=== PATIENT | female | born 1955 | race Caucasian/White ===

== ENCOUNTER 2020-08-12 13:42 | Emergency (ER) | payer OTHER ==
[~2020-08-12] VITALS: Ht 165.1 cm; Wt 90.9 kg
[~2020-08-12 13:42] MED LIST: ACID1TAB15 PO; AMLO2.5T96 PO; CARB15OT AD; LEVO50TA4 PO; LITH300C3 PO; LORA-1000 PO; MIRT30 PO; PARO-38 PO; RISP0.252 PO; THERAGRAN M1 TA1 PO
[2020-08-12] MEDS ORDERED: DiphenhydrAMINE HCL 50 MG/ML VIAL IVP STA (15:39)
[2020-08-12] MEDS ORDERED: AMLO-258 PO (15:44)
[2020-08-12] MEDS ORDERED: MULT-29 PO (15:44)
[2020-08-12] MEDS ORDERED: LEVO100 PO (15:44)
[2020-08-12] MEDS ORDERED: ACID1TAB8 PO (15:44)
[2020-08-12] MEDS ORDERED: RISP0.5T39 PO (15:44)
[2020-08-12] MEDS ORDERED: METOCLOPRAMIDE HCL 5 MG/ML 2 ML VIAL IVP ONE (15:45)
[2020-08-12] MEDS ORDERED: ACETAMINOPHEN 500 MG TABLET PO ONE (15:45)
[2020-08-12] MEDS ORDERED: LORazepam 2 MG/ML VIAL IVP ONE (15:45)
[2020-08-12] MEDS ORDERED: SODIUM CHLORIDE 0.9% 1,000 ML IV ONE (15:45)
[2020-08-12 15:57] LABS: BASOPHILS % (AUTO) 0.8 % (0.0-2.0); EOSINOPHILS % (AUTO) 3.2 % (1.0-6.0); HEMATOCRIT 45.7 % (36-46); HEMOGLOBIN 15.3 g/dL (12.0-16.0); LYMPHOCYTES % (AUTO) 27.6 % (22.0-44.0); MEAN CORPUSCULAR HEMOGLOBIN 31.8 pg (26.0-34.0); MEAN CORPUSCULAR HGB CONC 33.6 G/dL (31.0-37.0); MEAN CORPUSCULAR VOLUME 95 fL (80-100); MONOCYTES # (AUTO) 1.5 K/uL (0.1-1.0); MONOCYTES % (AUTO) 10.4 % (2.0-9.0); NEUTROPHILS # (AUTO) 8.3 K/uL (1.8-7.7); PLATELET COUNT (AUTO) 326 K/uL (150-450); RED BLOOD CELL COUNT(AUTO) 4.83 MIL/uL (4.00-5.20); RED CELL DISTRIBUTION WIDTH 13.4 % (11.5-14.5)
[2020-08-12 16:05] LABS: LITHIUM 0.51 mmol/L (0.60-1.20)
[2020-08-12 16:06] LABS: ANION GAP 8 mmol/L (8-16); CALCIUM, TOTAL 8.8 mg/dL (8.8-10.5); CARBON DIOXIDE 27 mmol/L (22-29); CHLORIDE 106 mmol/L (98-107); CREATININE 0.79 mg/dL (0.60-1.30); GLOMERULAR FILTR. RATE CALC > 60 mL/min (>60); GLUCOSE,RANDOM 146 mg/dL (70-110); POTASSIUM 3.7 mmol/L (3.5-5.1); SODIUM SERUM 141 mmol/L (136-145); UREA NITROGEN, BLOOD 24 mg/dL (7-18)
[2020-08-12 16:12] LABS: ALANINE AMINOTRANSFERASE 143 U/L (12-78); ALBUMIN 3.3 g/dL (3.4-5.0); ALKALINE PHOSPHATASE 129 U/L (46-116); ASPARTATE AMINOTRANSFERASE 65 U/L (15-37); BILIRUBIN,TOTAL 0.5 mg/dL (0.1-1.0); TOTAL PROTEIN, SERUM 7.2 g/dL (6.4-8.2)
[2020-08-12] MEDS ORDERED: KETOROLAC TROMETHAMINE 30 MG/ML VIAL IVP ONE (17:45)
[2020-08-12 18:56] LABS: APPEARANCE,URINE CLEAR (CLEAR); BILIRUBIN,URINE NEGATIVE (NEGATIVE); GLUCOSE, URINE (UA) NEGATIVE (NEGATIVE); KETONES,URINE NEGATIVE (NEGATIVE); LEUKOCYTE ESTERASE ,URINE NEGATIVE (NEGATIVE); NITRATE,URINE NEGATIVE (NEGATIVE); OCCULT BLOOD,URINE NEGATIVE (NEGATIVE); PROTEIN,URINE NEGATIVE (NEGATIVE); UROBILINOGEN,URINE 0.2 mg/dL (<=1.0)
[2020-08-12 19:12] LABS: BACTERIA,URINE None Seen /HPF (None Seen); RBC,URINE None Seen /HPF (0-2); SQUAMOUS EPITHELIAL CELL,UR None Seen /LPF (None Seen); WBC,URINE 0-2 /HPF (0-5)
[2020-08-12 21:03] VITALS: BP 132/68
== END 2020-08-12 21:42 | disposition home or self-care (01) ==
LOC: EMS 13:42
DX: F41.9 Anxiety disorder, unspecified (principal); J84.10 Pulmonary fibrosis, unspecified; K76.0 Fatty (change of) liver, not elsewhere classified; R51.9 Headache, unspecified; I10 Essential (primary) hypertension; Z79.899 Other long term (current) drug therapy
CPT/HCPCS: 36415; 70450; 71045; 71250; 80053; 80178; 81001; 85025; 96361; 96374; 96375; 99285; J1200; J1885; J2060; J2765; J7030

== ENCOUNTER 2021-07-27 18:47 | Inpatient (IN) | payer OTHER, MEDICAID ==
[~2021-07-27] VITALS: Ht 162.6 cm; Wt 88.0 kg
[~2021-07-27 18:47] MED LIST changes: -ACID1TAB15 PO; +ACID1TAB8 PO; +AMLO-258 PO; -AMLO2.5T96 PO; -CARB15OT AD; +LEVO100 PO; -LEVO50TA4 PO; +MULT-29 PO; -RISP0.252 PO; +RISP0.5T39 PO; -THERAGRAN M1 TA1 PO
[2021-07-27 19:47] LABS: GLUCOSE,POINT OF CARE 100 MG/DL (70-110)
[2021-07-27 21:35] LABS: BASOPHILS % (AUTO) 0.7 % (0.0-2.0); EOSINOPHILS % (AUTO) 4.4 % (1.0-6.0); HEMATOCRIT 44.3 % (36-46); HEMOGLOBIN 14.6 g/dL (12.0-16.0); LYMPHOCYTES # (AUTO) 3.4 K/uL (1.0-4.8); LYMPHOCYTES % (AUTO) 25.4 % (22.0-44.0); MEAN CORPUSCULAR HGB CONC 32.9 G/dL (31.0-37.0); MEAN CORPUSCULAR VOLUME 94 fL (80-100); MONOCYTES # (AUTO) 1.2 K/uL (0.1-1.0); MONOCYTES % (AUTO) 8.8 % (2.0-9.0); NEUTROPHILS # (AUTO) 8.2 K/uL (1.8-7.7); NEUTROPHILS % (AUTO) 60.7 % (40.0-70.0); PLATELET COUNT (AUTO) 259 K/uL (150-450); RED BLOOD CELL COUNT(AUTO) 4.71 MIL/uL (4.00-5.20); RED CELL DISTRIBUTION WIDTH 13.4 % (11.5-14.5)
[2021-07-27 21:45] LABS: ANION GAP 12 mmol/L (8-16); CALCIUM, TOTAL 9.9 mg/dL (8.8-10.5); CARBON DIOXIDE 22 mmol/L (22-29); CHLORIDE 108 mmol/L (98-107); CREATININE 1.11 mg/dL (0.60-1.30); GLOMERULAR FILTR. RATE CALC 49 mL/min (>60); GLUCOSE,RANDOM 122 mg/dL (70-110); POTASSIUM 3.8 mmol/L (3.5-5.1); SODIUM SERUM 142 mmol/L (136-145); UREA NITROGEN, BLOOD 18 mg/dL (7-18)
[2021-07-27 21:53] LABS: ALANINE AMINOTRANSFERASE 45 U/L (12-78); ALBUMIN 4.1 g/dL (3.4-5.0); ALKALINE PHOSPHATASE 91 U/L (46-116); ASPARTATE AMINOTRANSFERASE 26 U/L (15-37); BILIRUBIN,TOTAL 0.5 mg/dL (0.1-1.0)
[2021-07-27 22:15] LABS: LITHIUM 0.54 mmol/L (0.60-1.20)
[2021-07-27 22:16] LABS: AMPHET/METH SCREEN,URINE NEGATIVE (NEGATIVE); BARBITURATE SCREEN, URINE NEGATIVE (NEGATIVE); BENZODIAZEPINES SCREEN,URINE NEGATIVE (NEGATIVE); CANNABINOID SCREEN,URINE POSITIVE (NEGATIVE); COCAINE SCREEN,URINE NEGATIVE (NEGATIVE); METHADONE SCREEN, URINE NEGATIVE (NEGATIVE); OPIATE SCREEN,URINE NEGATIVE (NEGATIVE)
[2021-07-27 22:19] LABS: PHENCYCLIDINE SCREEN,URINE NEGATIVE (NEGATIVE)
[2021-07-27 23:34] LABS: COVID AG,FIA SOURCE NASOPHARYNGEAL
[2021-07-28 03:24] VITALS: BP 146/83
[2021-07-28] MEDS: LORazepam 2 MG TABLET PO PRN ×2 (03:26→09:21)
[2021-07-28 06:18] LABS: GLUCOMETER DEV NAME(LOC) BV2S.; GLUCOSE,POINT OF CARE 126 MG/DL (70-110)
[2021-07-28 08:08] VITALS: BP 151/63
[2021-07-28] MEDS ORDERED: CloNIDine HCL 0.1 MG TABLET PO PRN (11:00)
[2021-07-28] MEDS ORDERED: MAGNESIUM HYDROXIDE SUSPENSION 30 ML UDCUP PO PRN (11:00)
[2021-07-28] MEDS ORDERED: ALBUTEROL SULFATE HFA 90 MCG/PUFF 8 GM INHALER IH PRN (11:00)
[2021-07-28] MEDS ORDERED: GLUCAGON,HUMAN RECOMBINANT 1 MG VIAL IM PRN (11:00)
[2021-07-28] MEDS ORDERED: IBUPROFEN 600 MG TABLET PO PRN (11:00)
[2021-07-28] MEDS ORDERED: MAG HYDROX/AL HYDROX/SIMETH ES 30 ML SUSPENSION UDCUP PO PRN (11:00)
[2021-07-28] MEDS ORDERED: PETROLATUM,WHITE 28 GM JELLY TP PRN (11:00)
[2021-07-28] MEDS ORDERED: BACITRACIN 28 GM OINTMENT TP PRN (11:00)
[2021-07-28] MEDS ORDERED: ONDANSETRON HCL 4 MG TABLET PO PRN (11:00)
[2021-07-28] MEDS ORDERED: OMEPRAZOLE 20 MG CAPSULE PO PRN (11:00)
[2021-07-28] MEDS ORDERED: BENZOCAINE/MENTHOL LOZENGE PO PRN (11:00)
[2021-07-28] MEDS ORDERED: DOCUSATE SODIUM 100 MG CAPSULE PO PRN (11:00)
[2021-07-28] MEDS ORDERED: LOPERAMIDE HCL 2 MG CAPSULE PO PRN (11:00)
[2021-07-28] MEDS: HALOPERIDOL 5 MG TABLET PO PRN (13:20)
[2021-07-28] MEDS ORDERED: PNEUMOCOCCAL VACCINE POLYVALENT 0.5 ML VIAL [PPSV23] IM. ONE (15:00)
[2021-07-28 16:33] VITALS: BP 141/61
[2021-07-28] MEDS: LITHIUM CARBONATE 300 MG CAPSULE PO SCH (16:51)
[2021-07-28] MEDS: LORazepam 0.5 MG TABLET PO SCH (16:51)
[2021-07-28 17:20] LABS: GLUCOMETER DEV NAME(LOC) BV2S.; GLUCOSE,POINT OF CARE 101 MG/DL (70-110)
[2021-07-28] MEDS: MIRTAZAPINE 15 MG TABLET PO SCH (20:01)
[2021-07-28 21:20] LABS: GLUCOMETER DEV NAME(LOC) BV2X.2; GLUCOSE,POINT OF CARE 106 MG/DL (70-110)
[2021-07-29 00:42] VITALS: BP 134/69
[2021-07-29 04:08] VITALS: BP 122/70
[2021-07-29] MEDS: HALOPERIDOL 5 MG TABLET PO PRN ×2 (04:19→12:04)
[2021-07-29 06:45] LABS: GLUCOMETER DEV NAME(LOC) BV2X.2; GLUCOSE,POINT OF CARE 101 MG/DL (70-110)
[2021-07-29] MEDS: LEVOTHYROXINE SODIUM 100 MCG TABLET PO SCH (06:56)
[2021-07-29] MEDS: LORazepam 0.5 MG TABLET PO SCH ×2 (07:55→16:20)
[2021-07-29] MEDS: LITHIUM CARBONATE 300 MG CAPSULE PO SCH ×2 (07:55→16:20)
[2021-07-29] MEDS: MIRTAZAPINE 15 MG TABLET PO SCH ×2 (07:57→20:34)
[2021-07-29] MEDS: AmLODIPine BESYLATE 10 MG TABLET PO SCH (07:58)
[2021-07-29 08:14] VITALS: BP 134/73
[2021-07-29 08:34] LABS: HEMOGLOBIN A1C 5.4 % (3.8-5.6)
[2021-07-29 08:53] LABS: FREE T4 (FREE THYROXINE) 0.98 ng/dL (0.76-1.46); THYROID STIMULATING HORMONE 16.25 uIU/mL (0.36-3.74)
[2021-07-29 11:16] LABS: GLUCOMETER DEV NAME(LOC) BV2X.2; GLUCOSE,POINT OF CARE 89 MG/DL (70-110)
[2021-07-29] MEDS ORDERED: MULT-248 PO (14:44)
[2021-07-29 16:09] VITALS: BP 126/73
[2021-07-29] MEDS: BRIMONIDINE/TIMOLOL 0.2-0.5% 5 ML OPHTHALMIC SOLUTION OU SCH (16:21)
[2021-07-29 16:40] LABS: GLUCOMETER DEV NAME(LOC) BV2X.2; GLUCOSE,POINT OF CARE 111 MG/DL (70-110)
[2021-07-29] MEDS: LATANOPROST 0.005% 2.5 ML OPHTHALMIC SOLUTION OU SCH (20:50)
[2021-07-29 21:06] LABS: GLUCOMETER DEV NAME(LOC) BV2X.2; GLUCOSE,POINT OF CARE 121 MG/DL (70-110)
[2021-07-30 00:58] VITALS: BP 124/75
[2021-07-30] MEDS: LEVOTHYROXINE SODIUM 100 MCG TABLET PO SCH (06:42)
[2021-07-30 06:49] LABS: GLUCOMETER DEV NAME(LOC) BV2X.2; GLUCOSE,POINT OF CARE 150 MG/DL (70-110)
[2021-07-30] MEDS: INSULIN LISPRO 100 UNITS/ML SQ PRN (06:51)
[2021-07-30] MEDS: AmLODIPine BESYLATE 10 MG TABLET PO SCH (08:12)
[2021-07-30] MEDS: LORazepam 0.5 MG TABLET PO SCH ×2 (08:12→16:37)
[2021-07-30] MEDS: LITHIUM CARBONATE 300 MG CAPSULE PO SCH ×2 (08:12→16:37)
[2021-07-30] MEDS: MIRTAZAPINE 15 MG TABLET PO SCH ×2 (08:13→20:02)
[2021-07-30] MEDS: BRIMONIDINE/TIMOLOL 0.2-0.5% 5 ML OPHTHALMIC SOLUTION OU SCH ×2 (08:14→16:38)
[2021-07-30 08:47] VITALS: BP 140/76
[2021-07-30] MEDS: HALOPERIDOL 5 MG TABLET PO PRN ×2 (09:02→12:53)
[2021-07-30 11:11] LABS: GLUCOMETER DEV NAME(LOC) BV2X.2; GLUCOSE,POINT OF CARE 122 MG/DL (70-110)
[2021-07-30 16:19] VITALS: BP 138/79
[2021-07-30 17:17] LABS: GLUCOMETER DEV NAME(LOC) BV2X.2; GLUCOSE,POINT OF CARE 112 MG/DL (70-110)
[2021-07-30] MEDS: ZOLPIDEM TARTRATE 10 MG TABLET PO PRN (20:01)
[2021-07-30] MEDS: LATANOPROST 0.005% 2.5 ML OPHTHALMIC SOLUTION OU SCH (20:02)
[2021-07-30 20:23] LABS: GLUCOMETER DEV NAME(LOC) BV2X.2; GLUCOSE,POINT OF CARE 104 MG/DL (70-110)
[2021-07-31 05:23] VITALS: BP 135/83
[2021-07-31 06:23] LABS: GLUCOMETER DEV NAME(LOC) BV2X.2; GLUCOSE,POINT OF CARE 135 MG/DL (70-110)
[2021-07-31] MEDS: LEVOTHYROXINE SODIUM 100 MCG TABLET PO SCH (06:51)
[2021-07-31] MEDS: AmLODIPine BESYLATE 10 MG TABLET PO SCH (08:14)
[2021-07-31] MEDS: LORazepam 0.5 MG TABLET PO SCH ×2 (08:14→16:27)
[2021-07-31] MEDS: LITHIUM CARBONATE 300 MG CAPSULE PO SCH ×2 (08:14→16:27)
[2021-07-31] MEDS: MIRTAZAPINE 15 MG TABLET PO SCH ×2 (08:14→20:34)
[2021-07-31 08:15] VITALS: BP 144/82
[2021-07-31] MEDS: BRIMONIDINE/TIMOLOL 0.2-0.5% 5 ML OPHTHALMIC SOLUTION OU SCH ×2 (08:16→16:28)
[2021-07-31 11:55] LABS: GLUCOMETER DEV NAME(LOC) BV2X.2; GLUCOSE,POINT OF CARE 99 MG/DL (70-110)
[2021-07-31 16:21] VITALS: BP 129/73
[2021-07-31 17:00] LABS: GLUCOMETER DEV NAME(LOC) BV2X.2; GLUCOSE,POINT OF CARE 124 MG/DL (70-110)
[2021-07-31] MEDS: LATANOPROST 0.005% 2.5 ML OPHTHALMIC SOLUTION OU SCH (20:35)
[2021-07-31 21:07] LABS: GLUCOMETER DEV NAME(LOC) BV2X.2; GLUCOSE,POINT OF CARE 101 MG/DL (70-110)
[2021-08-01 01:10] VITALS: BP 135/75
[2021-08-01] MEDS: HALOPERIDOL 5 MG TABLET PO PRN (01:23)
[2021-08-01] MEDS: LEVOTHYROXINE SODIUM 100 MCG TABLET PO SCH (06:00)
[2021-08-01 06:16] LABS: GLUCOMETER DEV NAME(LOC) BV2X.2; GLUCOSE,POINT OF CARE 141 MG/DL (70-110)
[2021-08-01] MEDS: INSULIN LISPRO 100 UNITS/ML SQ PRN (06:18)
[2021-08-01] MEDS: LORazepam 0.5 MG TABLET PO SCH ×2 (08:08→16:17)
[2021-08-01] MEDS: MIRTAZAPINE 15 MG TABLET PO SCH ×2 (08:09→20:38)
[2021-08-01] MEDS: AmLODIPine BESYLATE 10 MG TABLET PO SCH (08:09)
[2021-08-01] MEDS: LITHIUM CARBONATE 300 MG CAPSULE PO SCH ×2 (08:09→16:17)
[2021-08-01] MEDS: BRIMONIDINE/TIMOLOL 0.2-0.5% 5 ML OPHTHALMIC SOLUTION OU SCH ×2 (08:10→16:17)
[2021-08-01 08:32] LABS: COVID AG,FIA SOURCE NASOPHARYNGEAL
[2021-08-01 09:47] VITALS: BP 142/89
[2021-08-01 11:40] LABS: GLUCOMETER DEV NAME(LOC) BV2X.2; GLUCOSE,POINT OF CARE 100 MG/DL (70-110)
[2021-08-01 16:10] VITALS: BP 144/69
[2021-08-01 16:24] LABS: GLUCOMETER DEV NAME(LOC) BV2X.2; GLUCOSE,POINT OF CARE 115 MG/DL (70-110)
[2021-08-01 20:23] LABS: GLUCOMETER DEV NAME(LOC) BV2X.2; GLUCOSE,POINT OF CARE 111 MG/DL (70-110)
[2021-08-01] MEDS: LATANOPROST 0.005% 2.5 ML OPHTHALMIC SOLUTION OU SCH (20:38)
[2021-08-01] MEDS: ZOLPIDEM TARTRATE 10 MG TABLET PO PRN (20:39)
[2021-08-02 03:27] VITALS: BP 132/83
[2021-08-02] MEDS: LEVOTHYROXINE SODIUM 100 MCG TABLET PO SCH (06:20)
[2021-08-02 06:47] LABS: GLUCOMETER DEV NAME(LOC) BV2X.2; GLUCOSE,POINT OF CARE 136 MG/DL (70-110)
[2021-08-02 08:13] VITALS: BP 144/86
[2021-08-02] MEDS: LORazepam 0.5 MG TABLET PO SCH ×2 (08:18→16:32)
[2021-08-02] MEDS: AmLODIPine BESYLATE 10 MG TABLET PO SCH (08:18)
[2021-08-02] MEDS: MIRTAZAPINE 15 MG TABLET PO SCH ×2 (08:18→20:44)
[2021-08-02] MEDS: LITHIUM CARBONATE 300 MG CAPSULE PO SCH ×2 (08:18→16:32)
[2021-08-02] MEDS: BRIMONIDINE/TIMOLOL 0.2-0.5% 5 ML OPHTHALMIC SOLUTION OU SCH ×2 (08:20→16:34)
[2021-08-02 11:12] LABS: GLUCOMETER DEV NAME(LOC) BV2X.2; GLUCOSE,POINT OF CARE 138 MG/DL (70-110)
[2021-08-02 16:18] VITALS: BP 150/78
[2021-08-02 16:20] VITALS: BP 150/79
[2021-08-02 17:13] LABS: GLUCOMETER DEV NAME(LOC) BV2X.2; GLUCOSE,POINT OF CARE 123 MG/DL (70-110)
[2021-08-02] MEDS: ACETAMINOPHEN 325 MG TABLET PO PRN (18:01)
[2021-08-02] MEDS: LATANOPROST 0.005% 2.5 ML OPHTHALMIC SOLUTION OU SCH (20:45)
[2021-08-02 23:08] LABS: GLUCOMETER DEV NAME(LOC) BV2X.2; GLUCOSE,POINT OF CARE 113 MG/DL (70-110)
[2021-08-03 00:55] VITALS: BP 141/77
[2021-08-03] MEDS: LEVOTHYROXINE SODIUM 100 MCG TABLET PO SCH (06:16)
[2021-08-03 06:27] LABS: GLUCOMETER DEV NAME(LOC) BV2X.2; GLUCOSE,POINT OF CARE 138 MG/DL (70-110)
[2021-08-03 07:05] VITALS: BP 141/77
[2021-08-03] MEDS: LITHIUM CARBONATE 300 MG CAPSULE PO SCH (08:13)
[2021-08-03] MEDS: AmLODIPine BESYLATE 10 MG TABLET PO SCH (08:13)
[2021-08-03] MEDS: MIRTAZAPINE 15 MG TABLET PO SCH (08:13)
[2021-08-03] MEDS: LORazepam 0.5 MG TABLET PO SCH (08:14)
[2021-08-03] MEDS: BRIMONIDINE/TIMOLOL 0.2-0.5% 5 ML OPHTHALMIC SOLUTION OU SCH (08:20)
[2021-08-03 08:25] VITALS: BP 140/80
[2021-08-03] MEDS ORDERED: MIRT-89 PO (09:17)
[2021-08-03] MEDS ORDERED: LORA-999 PO (09:18)
[2021-08-03] MEDS ORDERED: XALA2.5OS OU (09:20)
[2021-08-03] MEDS ORDERED: BRIM5DRO10 OU (09:21)
[2021-08-03] MEDS: ACETAMINOPHEN 325 MG TABLET PO PRN (09:45)
[2021-08-03 11:37] LABS: GLUCOMETER DEV NAME(LOC) BV2X.2; GLUCOSE,POINT OF CARE 104 MG/DL (70-110)
== END 2021-08-03 13:00 | disposition home or self-care (01) | DRG 885 ==
LOC: EMS 18:47 → B2S 23:00 → B2X 07-28 18:57
PROVIDERS: ADMIT Psychiatry & Neurology Psychiatry; ATTEND Psychiatry & Neurology Psychiatry
DX: F32.2 Major depressive disorder, single episode, severe without psychotic features (principal); R45.851 Suicidal ideations; E03.9 Hypothyroidism, unspecified; E11.9 Type 2 diabetes mellitus without complications; I10 Essential (primary) hypertension; F19.10 Other psychoactive substance abuse, uncomplicated; Z20.822 Contact with and (suspected) exposure to COVID-19; F20.9 Schizophrenia, unspecified; G47.00 Insomnia, unspecified; K59.00 Constipation, unspecified; Z72.0 Tobacco use; Z90.49 Acquired absence of other specified parts of digestive tract; Z71.6 Tobacco abuse counseling
CPT/HCPCS: 80053; 80061; 80178; 82962; 83036; 84439; 84443; 85025; 99285; G0480

== ENCOUNTER 2021-09-26 15:44 | Inpatient (IN) | payer OTHER, MEDICAID ==
[~2021-09-26] VITALS: Ht 162.6 cm; Wt 86.0 kg
[~2021-09-26 15:44] MED LIST changes: -ACID1TAB8 PO; +BRIM5DRO10 OU; +CLON-595 PO; +DULO60CA98 PO; -LEVO100 PO; +LEVO125 PO; -LORA-1000 PO; -MULT-29 PO; -PARO-38 PO; +QUET100T PO; +QUET200T PO; -RISP0.5T39 PO; +XALA2.5OS OU
[2021-09-27] MEDS ORDERED: ZOLPIDEM TARTRATE 10 MG TABLET PO PRN (11:45)
[2021-09-27 15:21] LABS: GLUCOMETER DEV NAME(LOC) POC.BV
[2021-09-27 16:33] VITALS: BP 137/70
[2021-09-27 17:16] LABS: GLUCOMETER DEV NAME(LOC) BV2S.; GLUCOSE,POINT OF CARE 126 MG/DL (70-110)
[2021-09-27] MEDS: LORazepam 2 MG TABLET PO PRN (18:21)
[2021-09-28 00:18] VITALS: BP 133/72
[2021-09-28 05:08] VITALS: BP 150/83
[2021-09-28] MEDS: LORazepam 2 MG TABLET PO PRN ×3 (05:13→16:32)
[2021-09-28] MEDS ORDERED: CloNIDine HCL 0.1 MG TABLET PO PRN (05:45)
[2021-09-28] MEDS ORDERED: DOCUSATE SODIUM 100 MG CAPSULE PO PRN (05:45)
[2021-09-28] MEDS ORDERED: ALBUTEROL SULFATE HFA 90 MCG/PUFF 8 GM INHALER IH PRN (05:45)
[2021-09-28] MEDS ORDERED: OMEPRAZOLE 20 MG CAPSULE PO PRN (05:45)
[2021-09-28] MEDS ORDERED: BACITRACIN 28 GM OINTMENT TP PRN (05:45)
[2021-09-28] MEDS ORDERED: LOPERAMIDE HCL 2 MG CAPSULE PO PRN (05:45)
[2021-09-28] MEDS ORDERED: ONDANSETRON HCL 4 MG TABLET PO PRN (05:45)
[2021-09-28] MEDS ORDERED: BENZOCAINE/MENTHOL LOZENGE PO PRN (05:45)
[2021-09-28] MEDS ORDERED: ACETAMINOPHEN 325 MG TABLET PO PRN (05:45)
[2021-09-28] MEDS ORDERED: MAGNESIUM HYDROXIDE SUSPENSION 30 ML UDCUP PO PRN (05:45)
[2021-09-28] MEDS ORDERED: MAG HYDROX/AL HYDROX/SIMETH ES 30 ML SUSPENSION UDCUP PO PRN (05:45)
[2021-09-28] MEDS ORDERED: PETROLATUM,WHITE 28 GM JELLY TP PRN (05:45)
[2021-09-28] MEDS: LEVOTHYROXINE SODIUM 125 MCG TABLET PO SCH (06:34)
[2021-09-28 08:01] VITALS: BP 145/83
[2021-09-28] MEDS: AmLODIPine BESYLATE 10 MG TABLET PO SCH (08:27)
[2021-09-28] MEDS: HALOPERIDOL 5 MG TABLET PO PRN (09:45)
[2021-09-28 16:10] VITALS: BP 160/75
[2021-09-28] MEDS: LATANOPROST 0.005% 2.5 ML OPHTHALMIC SOLUTION OU SCH (20:38)
[2021-09-29 00:45] VITALS: BP 136/64
[2021-09-29] MEDS: LORazepam 2 MG TABLET PO PRN ×3 (04:14→14:15)
[2021-09-29] MEDS: LEVOTHYROXINE SODIUM 125 MCG TABLET PO SCH (06:14)
[2021-09-29 08:05] VITALS: BP 137/77
[2021-09-29 08:20] LABS: BASOPHILS % (AUTO) 0.8 % (0.0-2.0); EOSINOPHILS % (AUTO) 3.7 % (1.0-6.0); HEMATOCRIT 39.2 % (36-46); HEMOGLOBIN 13.8 g/dL (12.0-16.0); LYMPHOCYTES # (AUTO) 2.5 K/uL (1.0-4.8); LYMPHOCYTES % (AUTO) 26.8 % (22.0-44.0); MEAN CORPUSCULAR HEMOGLOBIN 32.8 pg (26.0-34.0); MEAN CORPUSCULAR HGB CONC 35.2 G/dL (31.0-37.0); MEAN CORPUSCULAR VOLUME 93 fL (80-100); MONOCYTES # (AUTO) 0.8 K/uL (0.1-1.0); NEUTROPHILS # (AUTO) 5.7 K/uL (1.8-7.7); NEUTROPHILS % (AUTO) 59.7 % (40.0-70.0); PLATELET COUNT (AUTO) 266 K/uL (150-450)
[2021-09-29 08:37] LABS: HEMOGLOBIN A1C 5.6 % (3.8-5.6)
[2021-09-29 08:38] LABS: LITHIUM < 0.20 mmol/L (0.60-1.20)
[2021-09-29 08:44] LABS: ALANINE AMINOTRANSFERASE 66 U/L (12-78); ALBUMIN 3.5 g/dL (3.4-5.0); ALKALINE PHOSPHATASE 94 U/L (46-116); ANION GAP 9 mmol/L (8-16); ASPARTATE AMINOTRANSFERASE 40 U/L (15-37); BILIRUBIN,TOTAL 0.3 mg/dL (0.1-1.0); CALCIUM, TOTAL 9.3 mg/dL (8.8-10.5); CARBON DIOXIDE 25 mmol/L (22-29); CHLORIDE 106 mmol/L (98-107); CHOL/HDL RATIO 4.8 (3.9-5.7); CHOLESTEROL 205 mg/dL (131-200); CREATININE 0.83 mg/dL (0.60-1.30); FREE T4 (FREE THYROXINE) 1.12 ng/dL (0.76-1.46); GLOMERULAR FILTR. RATE CALC > 60 mL/min (>60); GLUCOSE,RANDOM 127 mg/dL (70-110); HDL CHOLESTEROL 43 mg/dL (40-60); LDL CHOL (CALC.) 132 mg/dL (0-130); POTASSIUM 3.5 mmol/L (3.5-5.1); SODIUM SERUM 140 mmol/L (136-145); TOTAL PROTEIN, SERUM 7.3 g/dL (6.4-8.2); TRIGLYCERIDES 151 mg/dL (15-150); UREA NITROGEN, BLOOD 14 mg/dL (7-18)
[2021-09-29] MEDS ORDERED: FLUoxetine HCL 20 MG CAPSULE PO SCH (09:00)
[2021-09-29] MEDS: AmLODIPine BESYLATE 10 MG TABLET PO SCH (09:25)
[2021-09-29 16:06] VITALS: BP 148/71
[2021-09-29] MEDS: BRIMONIDINE TARTRATE 0.15% 5 ML OPHTHALMIC SOLUTION OU SCH (17:02)
[2021-09-29] MEDS: QUEtiapine FUMARATE 200 MG TABLET PO SCH (20:15)
[2021-09-29] MEDS: LATANOPROST 0.005% 2.5 ML OPHTHALMIC SOLUTION OU SCH ×2 (20:25→20:49)
[2021-09-30 03:25] VITALS: BP 121/62
[2021-09-30] MEDS: LORazepam 2 MG TABLET PO PRN ×3 (03:29→13:51)
[2021-09-30] MEDS: LEVOTHYROXINE SODIUM 125 MCG TABLET PO SCH (06:11)
[2021-09-30 08:14] VITALS: BP 141/86
[2021-09-30] MEDS: BRIMONIDINE TARTRATE 0.15% 5 ML OPHTHALMIC SOLUTION OU SCH ×2 (08:27→16:32)
[2021-09-30] MEDS: FLUoxetine HCL 20 MG CAPSULE PO SCH (08:27)
[2021-09-30] MEDS: AmLODIPine BESYLATE 10 MG TABLET PO SCH (08:27)
[2021-09-30 11:46] LABS: GLUCOMETER DEV NAME(LOC) POC.BV
[2021-09-30] MEDS: HALOPERIDOL 5 MG TABLET PO PRN (12:06)
[2021-09-30 16:21] VITALS: BP 134/77
[2021-09-30] MEDS: QUEtiapine FUMARATE 200 MG TABLET PO SCH (20:22)
[2021-09-30] MEDS: LATANOPROST 0.005% 2.5 ML OPHTHALMIC SOLUTION OU SCH (20:23)
[2021-09-30] MEDS: MIRTAZAPINE 15 MG TABLET PO SCH (20:24)
[2021-10-01] MEDS: LORazepam 2 MG TABLET PO PRN ×3 (03:21→13:32)
[2021-10-01 03:54] VITALS: BP 107/65
[2021-10-01] MEDS: LEVOTHYROXINE SODIUM 125 MCG TABLET PO SCH (06:57)
[2021-10-01] MEDS: AmLODIPine BESYLATE 10 MG TABLET PO SCH (08:16)
[2021-10-01] MEDS: FLUoxetine HCL 20 MG CAPSULE PO SCH (08:16)
[2021-10-01] MEDS: BRIMONIDINE TARTRATE 0.15% 5 ML OPHTHALMIC SOLUTION OU SCH ×2 (08:17→17:01)
[2021-10-01 08:18] VITALS: BP 131/80
[2021-10-01] MEDS: IBUPROFEN 600 MG TABLET PO PRN ×2 (09:58→20:05)
[2021-10-01 16:14] VITALS: BP 132/74
[2021-10-01] MEDS: MIRTAZAPINE 15 MG TABLET PO SCH (20:05)
[2021-10-01] MEDS: QUEtiapine FUMARATE 200 MG TABLET PO SCH (20:05)
[2021-10-01] MEDS: LATANOPROST 0.005% 2.5 ML OPHTHALMIC SOLUTION OU SCH (20:06)
[2021-10-02] MEDS: LORazepam 2 MG TABLET PO PRN ×2 (03:05→08:59)
[2021-10-02 05:46] VITALS: BP 119/79
[2021-10-02] MEDS: LEVOTHYROXINE SODIUM 125 MCG TABLET PO SCH (06:56)
[2021-10-02 08:10] VITALS: BP 134/75
[2021-10-02] MEDS: AmLODIPine BESYLATE 10 MG TABLET PO SCH (08:10)
[2021-10-02] MEDS: IBUPROFEN 600 MG TABLET PO PRN (08:10)
[2021-10-02] MEDS: BRIMONIDINE TARTRATE 0.15% 5 ML OPHTHALMIC SOLUTION OU SCH (08:10)
[2021-10-02] MEDS: FLUoxetine HCL 20 MG CAPSULE PO SCH (08:10)
[2021-10-02] MEDS ORDERED: MIRT-89 PO (13:02)
[2021-10-02] MEDS ORDERED: FLUO20CA36 PO (13:03)
[2021-10-02] MEDS ORDERED: QUET200T PO (13:03)
[2021-10-02] MEDS ORDERED: LEVO125T95 PO (13:04)
[2021-10-02] MEDS ORDERED: BRIM155OS OU (13:05)
[2021-10-02] MEDS ORDERED: XALA2.5OS OU (13:06)
[2021-10-02] MEDS ORDERED: AMLO-258 PO (13:06)
== END 2021-10-02 13:55 | disposition home or self-care (01) | DRG 885 ==
LOC: B2S 09-27 14:42
PROVIDERS: ADMIT Psychiatry & Neurology Psychiatry; ATTEND Psychiatry & Neurology Psychiatry
DX: F25.9 Schizoaffective disorder, unspecified (principal); R45.851 Suicidal ideations; E03.9 Hypothyroidism, unspecified; F41.9 Anxiety disorder, unspecified; I10 Essential (primary) hypertension; E11.9 Type 2 diabetes mellitus without complications; F12.90 Cannabis use, unspecified, uncomplicated; Z20.822 Contact with and (suspected) exposure to COVID-19; G47.00 Insomnia, unspecified; K59.00 Constipation, unspecified; H40.9 Unspecified glaucoma; F32.9 Major depressive disorder, single episode, unspecified; Z91.51 Personal history of suicidal behavior
CPT/HCPCS: 80053; 80061; 80178; 82962; 83036; 84436; 84439; 84443; 85025; G0480

== ENCOUNTER → 2021-11-25 | Outpatient (CLI) | payer OTHER ==
[~2021-11-25] MED LIST changes: +BRIM155OS OU; -BRIM5DRO10 OU; -CLON-595 PO; -DULO60CA98 PO; +FLUO20CA36 PO; -LEVO125 PO; +LEVO125T95 PO; -LITH300C3 PO; +MIRT-89 PO; -MIRT30 PO; -QUET100T PO
== END | disposition home or self-care (01) ==
LOC: LABMN 14:03
PROVIDERS: ATTEND Psychiatry & Neurology Psychiatry
DX: F25.0 Schizoaffective disorder, bipolar type (principal)
CPT/HCPCS: 80164